=== PATIENT | female | born 1995 | race Caucasian/White ===

== ENCOUNTER 2017-08-17 00:05 | Emergency (ER) | payer BC ==
[~2017-08-17] VITALS: Ht 167.6 cm; Wt 53.7 kg
[2017-08-17 00:09] VITALS: TEMP 37; Ht 167.6 cm; Wt 53.7 kg
[2017-08-17] MEDS ORDERED: DEXAMETHASONE INJ 10 MG in SYRINGE 0 ML IV STA (00:27)
[2017-08-17] MEDS ORDERED: SODIUM CHLORIDE 0.9% 1000ML 1,000 ML IV STA (00:27)
[2017-08-17] MEDS ORDERED: KETOROLAC TROMETHAMINE 30 MG/ML VIAL IV STA (00:27)
[2017-08-17] MEDS ORDERED: DEXAMETHASONE **PF** INJ 10 MG/ML VIAL ONE (00:39)
[2017-08-17 00:57] LABS: HEMATOCRIT 39.2 % (37-47); MEAN CELL VOLUME 90.7 fL (80-100); MEAN CORPUSCULAR HEMOGLOBIN 30.1 pg (25-34); MEAN CORPUSCULAR HGB CONC 33.2 g/dl (32-36); PLATELET COUNT 202 K/uL (130-400); RED BLOOD COUNT 4.32 M/uL (4.2-5.4); WHITE BLOOD COUNT 12.96 K/uL (4.8-10.8)
[2017-08-17 01:03] LABS: BUN/CREATININE RATIO 10.4 (10-20); CALCIUM 8.8 mg/dl (8.5-10.1); CREATININE 0.79 mg/dl (0.60-1.20); POTASSIUM 3.6 mmol/L (3.5-5.1)
[2017-08-17 01:15] LABS: BASO % 0.7 %; BASO ABS # 0.09 K/uL (0-0.2); COMPLETE YES; EOS % 0.2 %; IG% 0.2 %; LYMPH % 25.4 %; LYMPH ABS # 3.29 K/uL (1.2-3.4); MONO % 11.4 %; NEUT % 62.1 %
[2017-08-17] MEDS ORDERED: CETI10TA84 PO (01:24)
[2017-08-17] MEDS ORDERED: BCPILLS PO (01:24)
[2017-08-17] MEDS ORDERED: FLUT0.15 NAE (01:24)
--- NOTE | 2017-08-17 01:52 | EMERGENCY ROOM VISIT NOTE ---
History Report prepared by Andre: Elda Kong Under the Supervision of: Dr. Ro Woodall D.O. 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 She notes being sick intermittently throughout the year, reporting that she has seen her PCP on and off and they noted she has enlarged tonsils, though she states they are larger than usual. She notes that she cannot see her "uvula." She cannot remember the last time she has been able to breathe through her nose normally. She notes that she has not been able to eat or drink well due to difficulty swallowing. She notes increased fatigue, though denies any fevers. She denies any underlying health problems. She reports having a balanced diet. She has not seen an ENT doctor. She has a history of streptococcus pharyngitis and mononucleosis. 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 A total of 10 systems reviewed and were otherwise negative. Past Medical & Surgical Medical Problems: (1) Mononucleosis (2) Strep pharyngitis Family History Hypertension Social History Smoking Status: Never Smoker Smokeless Tobacco Use: No Alcohol Use: occasionally (weekly) Drug Use: none Marital Status: single Housing Status: lives with roommate Occupation Status: student Current/Historical Medications Scheduled Control Pills ( Control Pills), 1 TAB PO DAILY Cetirizine (Zyrtec), 10 MG PO DAILY Fluticasone Propionate (Nasal) (Flonase Allergy Relief), 1 SPRAY URIAH BID Allergies Coded Allergies: Morphine (Verified Adverse Reaction, Unknown, vomiting, 08/17/17) Physical Exam Vital Signs Date Time Temp Pulse Resp B/P (MAP) Pulse Ox O2 Delivery O2 Flow Rate FiO2 08/17/17 02:04 98 18 139/81 99 Room Air 08/17/17 00:09 37.0 118 18 126/84 98 Room Air Physical Exam HEENT: Head - normocephalic and atraumatic Pupils are equal, round, and reactive to light. Extraocular eye muscles are intact, and sclera are anicteric. Ears - Normal TMs. Nose - moist nasal mucosa without discharge. Mouth - Significant enlarged tonsils that are kissing. Mild erythema, but no exudates. Neck: Supple; no JVD, nuchal rigidity, or auscultated bruits. Enlarged anterior lymph nodes and small posterior lymph nodes. Heart: Tachycardiac rate and rhythm. There is a normal S1 and S2 with no murmurs, clicks, or gallops appreciated. Lungs: Clear to auscultation bilaterally with no wheezes, rales, or rhonchi. Abdomen: Soft, completely nontender, nondistended, with good bowel sounds. There are no palpable pulsatile masses or hepatosplenomegaly. There is no guarding, rigidity, or rebound noted. Extremities: No evidence of cyanosis, clubbing, or edema. There are easily palpable peripheral pulses. Skin: warm and dry with good turgor and no rashes. Medical Decision & Procedures Laboratory Results 08/17/17 00:39 Red Blood Count 4.32, Mean Corpuscular Volume 90.7, Mean Corpuscular Hemoglobin 30.1, Mean Corpuscular Hemoglobin Concent 33.2, Neutrophils (%) (Auto) 62.1, Lymphocytes (%) (Auto) 25.4, Monocytes (%) (Auto) 11.4, Eosinophils (%) (Auto) 0.2, Basophils (%) (Auto) 0.7, Neutrophils # (Auto) 8.04, Lymphocytes # (Auto) 3.29, Monocytes # (Auto) 1.48, Eosinophils # (Auto) 0.03, Basophils # (Auto) 0.09 08/17/17 00:39 Test 08/17/17 00:39 White Blood Count 12.96 K/uL (4.8-10.8) Red Blood Count 4.32 M/uL (4.2-5.4) Hemoglobin 13.0 g/dL (12.0-16.0) Hematocrit 39.2 % (37-47) Mean Corpuscular Volume 90.7 fL (80-100) Mean Corpuscular Hemoglobin 30.1 pg (25-34) Mean Corpuscular Hemoglobin Concent 33.2 g/dl (32-36) Platelet Count 202 K/uL (130-400) Neutrophils (%) (Auto) 62.1 % Lymphocytes (%) (Auto) 25.4 % Monocytes (%) (Auto) 11.4 % Eosinophils (%) (Auto) 0.2 % Basophils (%) (Auto) 0.7 % Neutrophils # (Auto) 8.04 K/uL (1.4-6.5) Lymphocytes # (Auto) 3.29 K/uL (1.2-3.4) Monocytes # (Auto) 1.48 K/uL (0.11-0.59) Eosinophils # (Auto) 0.03 K/uL (0-0.5) Basophils # (Auto) 0.09 K/uL (0-0.2) Immature Granulocyte % (Auto) 0.2 % Immature Granulocyte # (Auto) 0.03 K/uL (0.00-0.02) Anion Gap 8.0 mmol/L (3-11) Est Creatinine Clear Calc Drug Dose 97.1 ml/min Estimated GFR () 125.8 Estimated GFR (Non- 108.5 BUN/Creatinine Ratio 10.4 (10-20) Calcium Level 8.8 mg/dl (8.5-10.1) Monoscreen POS (NEG) Laboratory results per my review. Medications Administered Medications (Trade) Dose Ordered Sig/Stephanie Route Start Time Stop Time Status Last Admin Dose Admin Sodium Chloride 1,000 ml @ 999 mls/hr Q1H1M STAT IV 08/17/17 00:27 08/17/17 01:27 DC 08/17/17 00:42 999 MLS/HR Ketorolac Tromethamine (Toradol Inj) 30 mg NOW STAT IV 08/17/17 00:27 08/17/17 00:29 DC 08/17/17 00:42 30 MG Dexamethasone Sodium Phosphate (Dexamethasone Inj Pf) 10 mg STK-MED ONCE .ROUTE 08/17/17 00:39 08/17/17 00:40 DC 08/17/17 00:42 10 MG Procedure Ordered Dexamethasone IV Ordered Toradol IV Ordered NSS IV ED Course 0012: Patient was evaluated in room B10. A complete history and physical examination was performed. IV lock was established. Labs were drawn as above. Her throat was swabbed for strep and was negative. 0027: Ordered Dexamethasone Sodium Phosphate 2.5 mL @ 1 mls/min IV, Ordered Toradol 30 mg IV, and Ordered NSS 1,000 mL @ 999 mls/hr IV 0131: I reassessed the patient at this time. She is feeling better and resting comfortably. I discussed the results and treatment plan with the patient. I answered all pertaining questions that she had. She expressed understanding and verbalized agreement. The patient will be discharged home. Medical Decision The patient is a 21 year old female who presents to the ED with sore throat. Differential diagnosis includes tonsillitis, pharyngitis, strep throat, peritonsillar abscess, and mononucleosis. Lab results show: mono spot is positive; WBC 12.9; stable H&H; Glucose normal; Renal function normal. The patient describes a long history of upper respiratory infections, strep infections and mono. She has significant tonsillar edema on exam today with both anterior and posterior cervical lymphadenopathy. She has slight leukocytosis with positive Monospot. Strep testing was negative. 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 I believe the patient could benefit from a follow-up appointment with ENT. She plans to do this over the [facility]. The patient was encouraged to avoid any trauma to the abdomen with the diagnosis of mononucleosis. She is to take plenty of clear liquids and use NSAIDs for pain. Medication Reconcilliation Current Medication List: was personally reviewed by me Blood Pressure Screening Patient's blood pressure: Normal blood pressure Impression Primary Impression: Mononucleosis Scribe Attestation The scribe's documentation has been prepared under my direction and personally reviewed by me in its entirety. I confirm that the note above accurately reflects all work, treatment, procedures, and medical decision making performed by me. Departure Information Dispostion Home / Self-Care Referrals No Doctor, Assigned (PCP) Forms HOME CARE DOCUMENTATION FORM, IMPORTANT VISIT INFORMATION, WORK / SCHOOL INSTRUCTIONS Patient Instructions ED Mononucleosis, My [facility] Additional Instructions Rest. Avoid any trauma to the abdomen Follow up with ENT. Keep yourself well-hydrated.
[2017-08-17 02:04] VITALS: BP 139/81; PULSE 98; O2SAT 99
--- NOTE | 2017-08-19 17:42 | Pharmacy Progress Note ---
ED Pharmacist Culture FollowUp Date of Service: Aug 19, 2017. Called patient regarding throat culture with Group C Strep. Patient reports some improvement, but still with "stabbing" pain in throat ( despite ibuprofen use) and difficulty sleeping. Prescription for Penicillin VK 500 mg po BID x5 days called to [facility] at the patient's request. Case discussed with Dr. Colbert, who is the prescribing provider.
== END 2017-08-17 02:02 | disposition home or self-care (01) ==
LOC: C.EDB 00:07
DX: B27.90 Infectious mononucleosis, unspecified without complication (principal); J02.9 Acute pharyngitis, unspecified; R11.0 Nausea; R53.83 Other fatigue; Z79.3 Long term (current) use of hormonal contraceptives; Z79.899 Other long term (current) drug therapy; Z82.49 Family history of ischemic heart disease and other diseases of the circulatory system